=== PATIENT | male | born 2000 | race Two or more races ===

== ENCOUNTER 2024-08-16 21:04 | Emergency (ER) | payer MEDICAID, SELFPAY ==
[2024-08-16 21:05] VITALS: BMI 29.2
[2024-08-16 21:30] VITALS: BP 104/65; PULSE 68; RESP 20; TEMP 36.9; O2SAT 98
[2024-08-16] MEDS: ONDANSETRON ODT 4 MG TABRAP PO (23:00)
--- NOTE | 2024-08-16 23:15 | EDNOTE_ITS ---
Nausea/Vomit./Diarrhea-RME/HPI General Chief complaint: Nausea/Vomiting/Diarrhea Stated complaint: VOMITING,DIARRHEA,WARD Time Seen by Provider: 08/16/24 21:16 Arrival date/time: 08/16/24 21:04 RME / HPI RME / HPI Narrative: 24-year-old male with no reported past medical history presents for evaluation of nausea and vomiting x 2 days. Patient endorses x 4 episodes of watery diarrhea today. He reports subjective fever and headache. He notes recent travel to [place] and known sick contacts. Related Data Previous Rx's ?Medication ?Instructions ?Recorded cetirizine 10 mg tablet (All Day 10 mg PO QDAY #30 tab s 01/25/19 Allergy (cetirizine)) sodium chloride 0.65 % nasal spray 2 spray intranasal QID #60 mL 01/25/19 aerosol (Saline Nasal) Allergies Allergy/AdvReac Type Severity Reaction Status Date / Time No Known Allergies Allergy Verified 08/16/24 21:05 Course Orders Category Date Time Status Bedside COVID-19 Antigen Test NOW Care 08/16/24 22:05 Active Bedside Influenza A&B Antigen Test NOW Care 08/16/24 22:05 Active Ondansetron Odt [Zofran Odt] Med 08/16/24 22:05 Discontinued 4 mg PO X1 ONE Vital Signs Vital signs: Vital Signs Temperature 98.4 F 08/16/24 21:30 Pulse Rate 68 08/16/24 21:30 Respiratory Rate 20 08/16/24 21:30 Blood Pressure 104/65 08/16/24 21:30 Pulse Oximetry (%) 98 08/16/24 21:30 Oxygen Delivery Method Room Air 08/16/24 21:30 Nausea/Vomiting/Diarrhea Medications / Prescriptions Medication administrations:: Medication Administration History Discontinued Medications Ondansetron HCl (Ondansetron Odt 4 Mg Tabrap) 4 mg PO X1 ONE; Protocol Stop: 08/16/24 22:06 Last Admin: 08/16/24 23:00 Dose: 4 mg Documented By: CVL Discharge Plan Prescriptions/Referrals Prescriptions/Med Rec: No Action sodium chloride [Saline Nasal] 0.65 % aerosol,spray 2 spray INTRANASAL QID Qty: 60 0RF cetirizine [All Day Allergy (cetirizine)] 10 mg tablet 10 mg PO QDAY Qty: 30 0RF Referrals: No Primary/Family,Physician [Primary Care Provider] - In 1 week Patient/Caregiver Discharge Instructions Print Language: Telugu
== END 2024-08-16 23:39 | disposition home or self-care (01) ==
PROVIDERS: Emergency Provider Emergency Medicine
DX: R11.2 Nausea with vomiting, unspecified (principal); R19.7 Diarrhea, unspecified
CPT/HCPCS: 99283; Q0162